=== PATIENT | female | born 2000 | race Caucasian/White ===

== ENCOUNTER 2025-01-16 14:42 | Emergency (ER) | payer BC | END 2025-01-16 16:17 | disposition home or self-care (01) | LOC: JP.ED 14:42 | DX: S92.325A Nondisplaced fracture of second metatarsal bone, left foot, initial encounter for closed fracture (principal); S92.335A Nondisplaced fracture of third metatarsal bone, left foot, initial encounter for closed fracture; Z79.899 Other long term (current) drug therapy; W21.06XA Struck by volleyball, initial encounter; Y93.68 Activity, volleyball (beach) (court) | CPT/HCPCS: 73630-LT; 99283 ==